=== PATIENT | female | born 1990 | race Caucasian/White ===

== ENCOUNTER 2021-09-01 08:26 | Emergency (ER) | payer OTHER ==
[~2021-09-01] VITALS: Ht 165.1 cm; Wt 74.0 kg
[2021-09-01] MEDS ORDERED: LIDOCAINE 1% 10 ML VIAL SQ ONE (09:00)
[2021-09-01] MEDS ORDERED: PERTUSS(ACELL),DIPH,TET VAC/PF 0.5 ML SYRINGE IM. ONE (09:00)
[2021-09-01 09:21] VITALS: BP 119/65
== END 2021-09-01 10:00 | disposition home or self-care (01) ==
LOC: EMS 08:31
DX: S61.216A Laceration without foreign body of right little finger without damage to nail, initial encounter (principal); W45.8XXA Other foreign body or object entering through skin, initial encounter; Y93.39 Activity, other involving climbing, rappelling and jumping off; Y92.89 Other specified places as the place of occurrence of the external cause; Y99.8 Other external cause status; Z59.00 Homelessness unspecified
CPT/HCPCS: 12001; 90471; 90715; 99283; J3490